=== PATIENT | male | born 1930 | race Caucasian/White ===

== ENCOUNTER 2020-11-05 13:37 | Inpatient (IN) | payer MEDICARE, OTHER ==
[~2020-11-05] VITALS: Ht 180.3 cm; Wt 85.6 kg
--- NOTE | 2020-11-05 13:55 | EKG ---
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
[2020-11-05] MEDS ORDERED: ASPIRIN CHEWABLE 81 MG TABLET. PO ONE (14:00)
--- NOTE | 2020-11-05 14:12 | RAD ---
EXAM: XR CHEST 2V 11/05/2020 1:56 PM CLINICAL INDICATION: Chest pain COMPARISON: PET/CT 09/12/[address] chest 08/12/2020 TECHNIQUE: 2 views of the chest FINDINGS: The heart is normal in size. 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 Posterio r subpleural opacities in the left lower lobe are unchanged. No consolidation, pleural effusion, or p neumothorax. No acute osseous abnormality. IMPRESSION: 1. No acute abnormality. 2. Decreased conspicuity of known right suprahilar mass. 3. Unchanged subpleural opacities in the posterior left lower lobe, possibly atelectasis. Electronically signed by: Lindsay Floyd MD (11/05/2020 2:09 PM) [id number]
[2020-11-05 14:24] LABS: BASO # 0.1 x10^3/uL (0.0-0.2); BASO % 0 % (0-3); EOS # 0.1 x10^3/uL (0.0-0.7); EOS % 0 % (0-3); HEMATOCRIT 36.6 % (39.0-53.0); HEMOGLOBIN 12.1 g/dL (13.0-17.5); LYMPH # 1.6 x10^3/uL (1.0-4.8); LYMPH % 4 % (24-48); MEAN CORPUSCULAR HEMOGLOBIN 31 pg (25-35); MEAN CORPUSCULAR HGB CONC 33 g/dL (31-37); MEAN CORPUSCULAR VOLUME 93 fL (79-100); MONO # 1.3 x10^3/uL (0.0-1.1); MONO % 4 % (0-9); NEUT # 34.2 x10^3uL (1.8-7.7); NEUT % 92 % (31-73); PLATELET COUNT 321 x10^3/uL (140-400); RED BLOOD COUNT 3.93 x10^6/uL (4.30-5.70); WHITE BLOOD COUNT 37.3 x10^3/uL (4.0-11.0)
[2020-11-05] MEDS ORDERED: KETOROLAC 15 MG/ML VIAL. IVP ONE (14:30)
[2020-11-05 14:38] LABS: CALCIUM 9.3 mg/dL (8.5-10.1); CREATININE 1.5 mg/dL (0.7-1.3); GFR 44.3; POTASSIUM 4.6 mmol/L (3.5-5.1)
[2020-11-05 14:55] LABS: ALBUMIN 3.8 g/dL (3.4-5.0); ALBUMIN/GLOBULIN RATIO 1.2 (1.0-1.7); DIRECT BILIRUBIN 0.2 mg/dL (0.0-0.2); MAGNESIUM 1.8 mg/dL (1.8-2.4); TOTAL BILIRUBIN 0.9 mg/dL (0.2-1.0); TOTAL PROTEIN 6.9 g/dL (6.4-8.2)
--- NOTE | 2020-11-05 14:57 | EKG ---
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
[2020-11-05 15:09] LABS: % LYMPHS 3 % (24-48); % MONOS 1 % (0-10); % SEGS 96 % (35-66)
[2020-11-05 15:13] LABS: PLT ESTIMATE ADEQUATE (ADEQUATE)
[2020-11-05] MEDS ORDERED: levoFLOXacin PER PHARMACY 1 EACH. MC PRN (16:00)
[2020-11-05] MEDS ORDERED: IV NORMAL SALINE 50ML 50 ML ONE (16:12)
[2020-11-05] MEDS ORDERED: cefTRIAXone SODIUM 1 GM VIAL ONE (16:12)
--- NOTE | 2020-11-05 16:18 | PHYS DOC ---
Past History Past Medical History: Hypertension (JORGE LUIS GRANDA APRN) Past Surgical History: Other Additional Past Surgical Histo: lung biopsy (JORGE LUIS GRANDA APRN) Alcohol Use: None (JORGE LUIS GRANDA APRN) Adult General Chief Complaint Chief Complaint: CHEST PAIN HPI HPI Patient is a 89-year-old male who presents to the emergency department complaining of being awoken today at 5 AM with sternal chest pain. Patient rated his pain a 7/10 on a 1-10 pain scale, patient stated he became nauseated and vomited times once which relieved his nausea. Patient noticed food particles in his vomitus. Patient denies any diaphoretic episode. Patient denies any radiation of this pain. Patient reports pain increases when he takes a deep breath and when he pushes on his chest. Patient states he took 2 Tylenol for his pain which relieved his pain down to a 2/10 on a 1-10 pain scale. Patient states he is currently short of breath, however states he has been treated over the past week for pneumonia by his enamel buffer Dr. CLINTON from the [place]. Patient reports he is on day 6 of a 14-day regimen of amoxicillin. Patient states he just finished a Medrol Dosepak. Patient denies any numbness tingling or swelling to his extremities. Patient denies any rashes to the skin. Patient denies any cough or chest congestion or nasal congestion. Patient denies any recent fever or chills, patient denies any recent travel. (JORGE LUIS GRANDA APRN) Review of Systems Review of Systems Constitutional: Denies fever or chills [] Eyes: Denies change in visual acuity, redness, or eye pain [] HENT: Denies nasal congestion or sore throat [] Respiratory: Denies cough or shortness of breath [] Cardiovascular: No additional information not addressed in HPI [] GI: Denies abdominal pain, nausea, vomiting, bloody stools or diarrhea [] : Denies dysuria or hematuria [] Musculoskeletal: Denies back pain or joint pain [] Integument: Denies rash or skin lesions [] Neurologic: Denies headache, focal weakness or sensory changes [] Endocrine: Denies polyuria or polydipsia [] All other systems were reviewed and found to be within normal limits, except as documented in this note. (JORGE LUIS GRANDA APRN) Current Medications Current Medications Current Medications Medications (Trade) Dose Ordered Sig/[facility] Start Time Stop Time Status Last Admin Dose Admin Aspirin (Aspirin Chewable) 324 mg 1X ONCE 11/05/20 14:00 11/05/20 14:01 DC 11/05/20 14:48 324 MG Ketorolac Tromethamine (Toradol 15mg Vial) 15 mg 1X ONCE 11/05/20 14:30 11/05/20 14:33 DC 11/05/20 14:48 15 MG (JORGE LUIS GRANDA APRN) Allergies Allergies Allergies Coded Allergies Type Severity Reaction Last Updated Verified No Known Drug Allergies 10/01/19 No (JORGE LUIS GRANDA APRN) Physical Exam Physical Exam Constitutional: Well developed, well nourished, no acute distress, non-toxic appearance. 89-year-old male no apparent distress. HENT: Normocephalic, atraumatic, bilateral external ears normal, oropharynx moist, no oral exudates, nose normal. Oropharynx moist, pink, no infectious process appreciated, no lymphadenopathy of the head or neck appreciated, no drooling, no trismus appreciated. Eyes: PERRLA, EOMI, conjunctiva normal, no discharge. Neck: Normal range of motion, no tenderness, supple, no stridor. No C-spine tenderness, no nuchal rigidity, no meningismus signs. Cardiovascular:Heart rate regular rhythm, no murmur, heart rate tachycardic, heart sounds S1-S2 to auscultation. Lungs & Thorax: Bilateral breath sounds clear to auscultation all lung rogers with diminished breath sounds bilateral bases. No other adventitious lung sounds appreciated. Pain elicited with palpation to the anterior thorax specifically midsternal palpation. Pain elicited with deep inspiratio n/expiration to the anterior thorax. Abdomen: Bowel sounds normal, soft, no tenderness, no masses, no pulsatile masses. Skin: Warm, dry, no erythema, no rash. Back: No tenderness, no CVA tenderness. Extremities: No tenderness, no cyanosis, no clubbing, ROM intact, no edema. Distal cap refill less than 2 seconds, +2/4 pulses. Neurologic: Alert and oriented X 3, normal motor function, normal sensory function, no focal deficits noted. Psychologic: Affect normal, judgement normal, mood normal. (JORGE LUIS GRANDA Current Patient Data Vital Signs Vital Signs Date Time Temp Pulse Resp B/P (MAP) Pulse Ox O2 Delivery O2 Flow Rate FiO2 11/05/20 14:45 90 16 120/62 (81) 96 Room Air 11/05/20 13:40 99.2 Lab Results Laboratory Tests Test 11/05/20 13:56 White Blood Count 37.3 x10^3/uL Red Blood Count 3.93 x10^6/uL Hemoglobin 12.1 g/dL Hematocrit 36.6 % Mean Corpuscular Volume 93 fL Mean Corpuscular Hemoglobin 31 pg Mean Corpuscular Hemoglobin Concent 33 g/dL Red Cell Distribution Width 14.0 % Platelet Count 321 x10^3/uL Neutrophils (%) (Auto) 92 % Lymphocytes (%) (Auto) 4 % Monocytes (%) (Auto) 4 % Eosinophils (%) (Auto) 0 % Basophils (%) (Auto) 0 % Neutrophils # (Auto) 34.2 x10^3uL Lymphocytes # (Auto) 1.6 x10^3/uL Monocytes # (Auto) 1.3 x10^3/uL Eosinophils # (Auto) 0.1 x10^3/uL Basophils # (Auto) 0.1 x10^3/uL Segmented Neutrophils % 96 % Lymphocytes % 3 % Monocytes % 1 % Platelet Estimate Adequate Prothrombin Time 10.4 SEC Prothromb Time International Ratio 1.0 Activated Partial Thromboplast Time 26 SEC Sodium Level 135 mmol/L Potassium Level 4.6 mmol/L Chloride Level 98 mmol/L Carbon Dioxide Level 28 mmol/L Anion Gap 9 Blood Urea Nitrogen 31 mg/dL Creatinine 1.5 mg/dL Estimated GFR (Cockcroft-Gault) 44.3 BUN/Creatinine Ratio 21 Glucose Level 197 mg/dL Calcium Level 9.3 mg/dL Magnesium Level 1.8 mg/dL Total Bilirubin 0.9 mg/dL Direct Bilirubin 0.2 mg/dL Aspartate Amino Transf (AST/SGOT) 20 U/L Alanine Aminotransferase (ALT/SGPT) 25 U/L Alkaline Phosphatase 84 U/L Creatine Kinase 54 U/L Creatine Kinase MB (Mass) 1.0 ng/mL Creatine Kinase MB Relative Index 1.9 % Troponin I Quantitative < 0.017 ng/mL [id number]-F-Type Natriuretic Peptide 681 pg/mL Total Protein 6.9 g/dL Albumin 3.8 g/dL Albumin/Globulin Ratio 1.2 Lipase 74 U/L Current Medications Medications (Trade) Dose Ordered Sig/Tammi Route PRN Reason Start Time Stop Time Status Last Admin Dose Admin Aspirin (Aspirin Chewable) 324 mg 1X ONCE PO 11/05/20 14:00 11/05/20 14:01 DC 11/05/20 14:48 324 MG Ketorolac Tromethamine (Toradol 15mg Vial) 15 mg 1X ONCE IVP 11/05/20 14:30 11/05/20 14:33 DC 11/05/20 14:48 15 MG Laboratory Tests Test 11/05/20 13:56 White Blood Count 37.3 x10^3/uL (4.0-11.0) H Red Blood Count 3.93 x10^6/uL (4.30-5.70) L Hemoglobin 12.1 g/dL (13.0-17.5) L Hematocrit 36.6 % (39.0-53.0) L Mean Corpuscular Volume 93 fL (79-100) Mean Corpuscular Hemoglobin 31 pg (25-35) Mean Corpuscular Hemoglobin Concent 33 g/dL (31-37) Red Cell Distribution Width 14.0 % (11.5-14.5) Platelet Count 321 x10^3/uL (140-400) Neutrophils (%) (Auto) 92 % (31-73) H Lymphocytes (%) (Auto) 4 % (24-48) L Monocytes (%) (Auto) 4 % (0-9) Eosinophils (%) (Auto) 0 % (0-3) Basophils (%) (Auto) 0 % (0-3) Neutrophils # (Auto) 34.2 x10^3uL (1.8-7.7) H Lymphocytes # (Auto) 1.6 x10^3/uL (1.0-4.8) Monocytes # (Auto) 1.3 x10^3/uL (0.0-1.1) H Eosinophils # (Auto) 0.1 x10^3/uL (0.0-0.7) Basophils # (Auto) 0.1 x10^3/uL (0.0-0.2) Segmented Neutrophils % 96 % (35-66) H Lymphocytes % 3 % (24-48) L Monocytes % 1 % (0-10) Platelet Estimate Adequate (ADEQUATE) Prothrombin Time 10.4 SEC (9.4-11.4) Prothrombin Time INR 1.0 (0.9-1.1) Activated Partial Thromboplast Time 26 SEC (23-33) Sodium Level 135 mmol/L (136-145) L Potassium Level 4.6 mmol/L (3.5-5.1) Chloride Level 98 mmol/L (98-107) Carbon Dioxide Level 28 mmol/L (21-32) Anion Gap 9 (6-14) Blood Urea Nitrogen 31 mg/dL (8-26) H Creatinine 1.5 mg/dL (0.7-1.3) H Estimated GFR (Cockcroft-Gault) 44.3 BUN/Creatinine Ratio 21 (6-20) H Glucose Level 197 mg/dL (70-99) H Calcium Level 9.3 mg/dL (8.5-10.1) Magnesium Level 1.8 mg/dL (1.8-2.4) Total Bilirubin 0.9 mg/dL (0.2-1.0) Direct Bilirubin 0.2 mg/dL (0.0-0.2) Aspartate Amino Transferase (AST) 20 U/L (15-37) Alanine Aminotransferase (ALT) 25 U/L (16-63) Alkaline Phosphatase 84 U/L (46-116) Creatine Kinase 54 U/L (39-308) Creatine Kinase MB (Mass) 1.0 ng/mL (0.0-3.6) Creatine Kinase MB Relative Index 1.9 % (0-4) Troponin I Quantitative < 0.017 ng/mL (0-0.055) ZY-Vun-R-Type Natriuretic Peptide 681 pg/mL (0-449) H Total Protein 6.9 g/dL (6.4-8.2) Albumin 3.8 g/dL (3.4-5.0) Albumin/Globulin Ratio 1.2 (1.0-1.7) Lipase 74 U/L (73-393) (JORGE LUIS GRANDA APRN) EKG EKG EKG performed at 1344 by house respiratory therapy staff shows sinus tachycardia with an occasional PAC, heart rate 105 bpm, IN interval 0.168, QTc interval 0 .480, no acute STEMI, no ACS, no acute ischemia appreciated, EKG interpreted by ED attending physician Dr. Faust. EKG performed at 1439 by house respiratory therapy staff shows a normal sinus rhythm without ectopy heart rate 94 bpm, IN interval 0.170, QTc interval 0.461, no acute STEMI, no ACS, no acute ischemia appreciated, EKG interpreted by ED attending physician Dr. Faust. (JORGE LUIS GRANDA APRN) Radiology/Procedures Radiology/Procedures PATIENT: CYNDI JAEGER ACCOUNT: [id number] : 1930 LOCATION: ER AGE: 89 SEX: M EXAM STATUS: REG ER ORD. PHYSICIAN: JORGE LUIS GRANDA APRN REASON: CHEST PAIN PROCEDURE: CHEST PA & LATERAL EXAM: XR CHEST 2V 11/05/2020 1:56 PM CLINICAL INDICATION: Chest pain COMPARISON: PET/CT 09/12/[address] chest 08/12/2020 TECHNIQUE: 2 views of the chest FINDINGS: The heart is normal in size. 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 Posterior subpleural opacities in the left lower lobe are unchanged. No consolidation, pleural effusion, or pneumothorax. No acute osseous abnormality. IMPRESSION: 1. No acute abnormality. 2. Decreased conspicuity of known right suprahilar mass. 3. Unchanged subpleural opacities in the posterior left lower lobe, possibly atelectasis. Electronically signed by: Lindsay Floyd MD (11/05/2020 2:09 PM) [id number] DICTATED AND SIGNED BY: LINDSAY FLOYD MD DATE: 11/05/20 1405 CC: JORGE LUIS GRANDA APRN; NHUNG POWERS MD ~MTH0 0 (JORGE LUIS GRANDA APRN) Heart Score C/O Chest Pain: Yes HEART Score for Chest Pain: HEART Score for Chest Pain Response (Comments) Value History Slighlty/Non-Suspicious 0 ECG Normal 0 Age > 65 2 Risk Factors 1 or 2 Risk Factors 1 Troponin < Normal Limit 0 Total 3 Risk Factors: Risk Factors: DM, Current or recent (<one month) smoker, HTN, HLP, family history of CAD, obesity. Risk Scores: Risk Factors: DM, Current or recent (<one month) smoker, HTN, HLP, family history of CAD, obesity. (JORGE LUIS GRANDA APRN) Course & Med Decision Making Course & Med Decision Making Pertinent Labs and Imaging studies reviewed. (See chart for details) 89-year-old male, vital signs reviewed, presents emergency department complaining of sternal chest pain started at 5 AM this morning. Physical examination consistent with chest wall pain, however with patient recent history of lung biopsy, currently being treated for community-acquired pneumonia as outpatient with amoxicillin, a cardiorespiratory work-up was initiated. Patient chest x-ray concerning for subpleural opacities of the left lower lobe, patient is being treated with oral amoxicillin as outpatient for community- acquired pneumonia, however patient's white blood cell count equals 37,300, blood cultures x2 were ordered, 1 g Rocephin IV ordered, followed by Levaquin per pharmacy dosing IV. Discussed with patient findings, recommended admission to the hospital at [facility] for community acquired pneumonia failure outpatient treatment, chest pain, leukocytosis. Patient is amenable to being admitted under his primary care physician Dr. Powers at [facility]. Called and discussed patient case with patient primary care physician Dr. Powers who agreed to assume care and admit patient to the telemetry unit for the following diagnosis of community-acquired pneumonia with failed outpatient antibiotic therapy, leukocytosis, chest pain with the information he was given by me. Dr. Powers has assumed patient care at this time. (JORGE LUIS GRANDA APRN) Course & Med Decision Making I oversaw on the above date of service of this patient and discussed the care with the BASIN FINISH OPERATOR TIG WELDER. I saw patient and agree with the findings, plan of care, and disposition as documented. Electronically signed, Rich Faust DO (RICH FAUST DO) Feng Disclaimer Feng Disclaimer This electronic medical record was generated, in whole or in part, using a voice recognition dictation system. (JORGE LUIS GRANDA APRN) Departure Departure: Impression: Primary Impression: Community acquired pneumonia Additional Impressions: Leukocytosis Chest pain Disposition: ADMITTED INPATIENT Admitting Physician: Nhung Powers (Admit to the telemetry unit to Dr. Fabiola tanner) (JORGE LUIS GRANDA APRN) Condition: GUARDED Referrals: NHUNG POWERS MD (PCP) Scripts Digoxin (LANOXIN) 250 Mcg Tablet 1 TAB PO DAILY for a fib for 30 Days, #30 TAB 0 Refills Prov: NHUNG POWERS MD 11/07/20 Problem Qualifiers Primary Impression: Community acquired pneumonia Laterality: left Lung location: lower lobe of lung Qualified Codes: J18.9 - Pneumonia, unspecified organism Additional Impressions: Leukocytosis Leukocytosis type: unspecified Qualified Codes: D72.829 - Elevated white blood cell count, unspecified Chest pain Chest pain type: unspecified Qualified Codes: R07.9 - Chest pain, unspecified JORGE LUIS GRANDA APRN Nov 05, 2020 16:17 RICH FAUST DO November 08, 2020 02:18
--- NOTE | 2020-11-05 18:02 | NUR ---
PT ARRIVED TO UNIT VIA EMS. PTS VS OBTAINED AND ARE STABLE. PT IS ORIENTED TO ROOM AND PROCEDURES. PT IS OFFERED FOOD AND DRINK. PT IS EATING DINNER TRAY IN ROOM AT THIS TIME. WILL CONTINUE TO MONITOR.
[2020-11-05] MEDS ORDERED: FERR325T14 PO (18:19)
[2020-11-05] MEDS ORDERED: VITA1TAB19 PO (18:19)
[2020-11-05] MEDS ORDERED: MULT-245 PO (18:19)
[2020-11-05] MEDS ORDERED: LEVO100T5 PO (18:19)
[2020-11-05] MEDS ORDERED: LISI20TA18 PO (18:19)
[2020-11-05] MEDS ORDERED: METF500T16 PO (18:19)
[2020-11-05] MEDS ORDERED: APIX5TAB3 PO (18:19)
[2020-11-05] MEDS ORDERED: SIMV20TA18 PO (18:19)
[2020-11-05] MEDS ORDERED: OMEP20CA16 PO (18:19)
[2020-11-05 18:25] VITALS: BP 127/71
[2020-11-05] MEDS ORDERED: ACET325T21 PO (19:55)
[2020-11-05] MEDS ORDERED: ACETAMINOPHEN 325 MG TABLET PO PRN (20:00)
[2020-11-05] MEDS ORDERED: BUDE10.22 IH (20:38)
[2020-11-05] MEDS: FLUTICASONE/VILANTEROL 100/25 INHALER. INH SCH (21:00)
[2020-11-05 22:21] VITALS: BP 109/68
[2020-11-06] VITALS (13 sets, daily range): BP systolic 95–125; BP diastolic 53–82
[2020-11-06] MEDS: FLUTICASONE/VILANTEROL 100/25 INHALER. INH SCH (08:46)
[2020-11-06 10:25] LABS: BASO % 0 % (0-3); EOS # 0.1 x10^3/uL (0.0-0.7); EOS % 0 % (0-3); HEMATOCRIT 31.1 % (39.0-53.0); HEMOGLOBIN 10.1 g/dL (13.0-17.5); LYMPH # 2.1 x10^3/uL (1.0-4.8); LYMPH % 12 % (24-48); MEAN CORPUSCULAR HEMOGLOBIN 30 pg (25-35); MEAN CORPUSCULAR HGB CONC 33 g/dL (31-37); MEAN CORPUSCULAR VOLUME 93 fL (79-100); MONO # 0.6 x10^3/uL (0.0-1.1); MONO % 3 % (0-9); NEUT # 15.7 x10^3uL (1.8-7.7); NEUT % 85 % (31-73); PLATELET COUNT 263 x10^3/uL (140-400); RED BLOOD COUNT 3.34 x10^6/uL (4.30-5.70); RED CELL DISTRIBUTION WIDTH 13.9 % (11.5-14.5); WHITE BLOOD COUNT 18.6 x10^3/uL (4.0-11.0)
[2020-11-06] MEDS: MULTIVITAMIN with MINERAL TABLET. PO SCH (10:25)
[2020-11-06] MEDS: LISINOPRIL 20 MG TABLET PO SCH (10:25)
[2020-11-06] MEDS: VITAMIN B COMPLEX CAPSULE. PO SCH (10:25)
[2020-11-06] MEDS: APIXABAN 5 MG TABLET. PO SCH ×2 (10:25→19:46)
--- NOTE | 2020-11-06 12:15 | NUR ---
Nursing note Pt verbalizes concern for discharge time. Pt states that he is concerned that he may miss his oncology appointment at on Tuesday the at 1045. informed of pts concern.
[2020-11-06] MEDS ORDERED: AZIT500T PO (14:34)
--- NOTE | 2020-11-06 14:42 | NUR ---
FOLLOW UP FOLLOW UP WITH DR POWERS [phone] ON TuesdayNovember AT 1045.
--- NOTE | 2020-11-06 16:36 | HP ---
HISTORY OF PRESENT ILLNESS: This is a pleasant 89-year-old male, came in through the emergency room with increased shortness of breath, substernal chest pain 7-04/19. The patient has become somewhat nauseated and vomited twice early with nausea. The patient noticed food particles in his vomitus. The patient denies any diaphoretic episode. The patient denies any radiation of pain. The patient notes that it somewhat increases with a deep breath. Recently, he has been seen by a management trainee program stores, Dr. Ash at the [place] and was given amoxicillin for what was thought to be a bronchitis and Medrol Dosepak. The patient otherwise denies any diaphoresis. The patient was admitted for pneumonia. He had a white count of 33,000, and as a result of this, the patient was admitted for further evaluation and treatment. PAST MEDICAL HISTORY: Cataracts; macular degeneration; neurological disorder; cerebrovascular disorder; cardiac disorders; cardiomyopathy, on Eliquis; hypercholesterolemia; hypertension; diverticulitis; diabetes; hypothyroidism; skin cancer; pressure ulcers and extended-spectrum beta-lactamase. ALLERGIES: No known drug allergies. SOCIAL HISTORY: The patient denies smoking, alcohol or drug use and lives at home. He is a full code. REVIEW OF SYSTEMS: The patient denies any headaches, visual changes, blurred vision, double vision. He does have some shortness of breath and chest pain now. He has no nausea or vomiting or abdominal pain. Denies any melena, hematochezia, hematemesis, and neurologically, the patient is alert and oriented x 3. PHYSICAL EXAMINATION: GENERAL: This is a pleasant white male. VITAL SIGNS: Blood pressure anywhere from 120/57-60, pulse 90, respiratory rate 16, temperature was slightly elevated at 99.2, oxygen saturation 95% on room air. HEENT: The patient's head was atraumatic, normocephalic. Eyes: PERRLA without jaundice. The mouth and throat were normal. NECK: Supple, no JVD, no thyromegaly. LUNGS: Diminished throughout, but basically clear. CARDIOVASCULAR: Regular sinus rhythm. ABDOMEN: Protuberant, soft, diffuse tenderness in the epigastric area, but no rebound or guarding. Positive bowel sounds. No hepatosplenomegaly was noted. EXTREMITIES: No clubbing, cyanosis, nor edema. NEUROLOGIC: The patient was alert and oriented x 3. The patient otherwise was alert and oriented and patient was stable. LABORATORY DATA: The white count as noted was 37,000, increase in neutrophils. The patient's hemoglobin and hematocrit were slightly low at 12.1, went down to 10.1 and 31. The patient's coags. Lactic acid was normal at 1.6. BUN and creatinine 31 and 1.5. Sodium and potassium 135 and 4.6. BNP was 681. Chest x-ray was basically no acute abnormality noted. The patient otherwise will be admitted, placed on IV antibiotics and make further evaluation on him as indicated. The patient's BNP was elevated at 681. Cardiac enzymes were negative. Blood sugar 174. Lactic acid 1.6. The patient will be monitored. IV antibiotic therapy, possibly diuresis and make further evaluation on him as indicated. SHANDRA DR: Clarice TID: [id number]
[2020-11-06] MEDS ORDERED: metFORMIN 500 MG TABLET PO SCH (17:00)
--- NOTE | 2020-11-06 17:32 | NUR ---
NURSING NOTE PT GETTING READY TO DISCHARGE AND THIS NURSE NOTICED HIS [employer] DINING CAR GO INTO AFIB HR FLUNCTUATING BETWEEN 120'S-140'S. DR POWERS NOTIFIED, ORDER FOR EKG, MAKE ICU STATUS FOR IV DIGOXIN 0.5 MCG, CONSULT CARDIOLOGY, CANCEL DISCHARGE. ALEISHA BARAJAS. Addendum: 11/06/20 at 1756 by KARL RAMIREZ RN RN CALLED TO VARIFY DIGOXIN WITH PHARMACY/DR POWERS. DIGOXIN 500MCG ORDERED IV PUSH.
[2020-11-06] MEDS ORDERED: DIGOXIN IV 500 MCG/2 ML AMPUL. IV ONE ×2 (17:45→20:00)
--- NOTE | 2020-11-06 17:53 | NUR ---
NURSING NOTE CONSULT CONSULT CARDIOLOGY CALLED. KARL MORAES
[2020-11-06] MEDS ORDERED: dilTIAZem VIAL 125 MG in IV NORMAL SALINE 100ML 100 ML IV PRN (19:00)
--- NOTE | 2020-11-06 20:38 | EKG ---
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
[2020-11-06] MEDS ORDERED: ATORVASTATIN CALCIUM 10 MG TABLET. PO SCH (21:00)
--- NOTE | 2020-11-06 21:52 | NUR ---
Pt was transferred over from [address] [place] [address] to ICU bed 4 on previous shift for Afib RVR. Pt with irregular rate and rhythm, ranging 100-150 bpm. Pt received digoxin 500mcg IVP x1 at 1800, and another x1 dose of 250mcg at 1947. Pt has not converted to SR, but rate has improved to 90-110 bpm. Pt to see cardiology in AM, consult called by previous RN. Pt denies any c/o. Currently resting in bed.
[2020-11-07] VITALS (10 sets, daily range): BP systolic 109–131; BP diastolic 57–70
[2020-11-07 06:31] LABS: BASO % 0 % (0-3); EOS # 0.1 x10^3/uL (0.0-0.7); EOS % 1 % (0-3); HEMATOCRIT 33.8 % (39.0-53.0); HEMOGLOBIN 11.3 g/dL (13.0-17.5); LYMPH # 3.3 x10^3/uL (1.0-4.8); LYMPH % 26 % (24-48); MEAN CORPUSCULAR HEMOGLOBIN 31 pg (25-35); MEAN CORPUSCULAR HGB CONC 33 g/dL (31-37); MEAN CORPUSCULAR VOLUME 93 fL (79-100); MONO # 0.6 x10^3/uL (0.0-1.1); MONO % 5 % (0-9); NEUT # 8.5 x10^3uL (1.8-7.7); NEUT % 68 % (31-73); PLATELET COUNT 273 x10^3/uL (140-400); RED BLOOD COUNT 3.63 x10^6/uL (4.30-5.70); RED CELL DISTRIBUTION WIDTH 13.9 % (11.5-14.5); WHITE BLOOD COUNT 12.5 x10^3/uL (4.0-11.0)
[2020-11-07 06:37] LABS: CALCIUM 8.9 mg/dL (8.5-10.1); CREATININE 1.4 mg/dL (0.7-1.3); GFR 47.9; POTASSIUM 4.4 mmol/L (3.5-5.1)
[2020-11-07] MEDS ORDERED: LEVOTHYROXINE 100 MCG TABLET PO SCH (07:30)
[2020-11-07] MEDS ORDERED: PANTOPRAZOLE 40 MG TABLET. PO SCH (07:30)
[2020-11-07] MEDS: VITAMIN B COMPLEX CAPSULE. PO SCH (08:09)
[2020-11-07] MEDS: LISINOPRIL 20 MG TABLET PO SCH (08:10)
[2020-11-07] MEDS: APIXABAN 5 MG TABLET. PO SCH (08:10)
[2020-11-07] MEDS: MULTIVITAMIN with MINERAL TABLET. PO SCH (08:10)
[2020-11-07] MEDS ORDERED: DIGO250T PO (08:23)
--- NOTE | 2020-11-07 08:57 | NUR ---
Discharged from the hospital, ambulated to car. A/O x4 BP stable, HR SR 70's rate. Pt will follow up with out patient cardiologists.
[2020-11-07] MEDS ORDERED: FERROUS SULFATE 325 MG TABLET. PO SCH (09:00)
--- NOTE | 2020-11-07 22:33 | DS ---
HOSPITAL COURSE: An 89-year-old gentleman admitted with cough and congestion. The patient had increased shortness of breath, substernal chest pain 7-8/10. The patient had been recently seen by his pharmacy manager at the [place], started on amoxicillin and Medrol Dosepak probably within the last 2 weeks, although he has been off the steroids. The patient was admitted for possible pneumonia and he had a white count of 33,000. The patient made excellent progress as his white count precipitated down from 37-18-12. Hemoglobin remained basically a little bit low at 11.3 and 33. The patient had normal platelets. The patient's sodium, potassium, BUN and creatinine were all normal except for the latter. The creatinine was 1.4 with a GFR of 48. The patient's blood sugar was 174. BNP slightly elevated at 681. The patient otherwise has made good progress overall with that element of his pneumonia and his mild respiratory distress; however, the patient before he was ready to leave went into AFib with RVR with a rate of 140. He has had previous history and ablation for this. He was on blood thinner with Eliquis. The patient was therefore admitted, taken to the ICU for close monitoring. He was given Lanoxin 500 mcg IV, which attempted to slow the heart rate down as well as 25 mcg around 6 hours later. The patient also continued to speed up and Dr. Tellez, centerpuncher recommended use of Cardizem, which we gave, but he trung down into the 40s and blood pressure dropped as well, so obviously he was taken off the Cardizem and his vital signs came back up and last blood pressure 125/70, respiratory rate 16, pulse 80. The patient was on room air at 94%. He was afebrile. The patient was discharged home. Follow up as an outpatient. Stay on Lanoxin and Zithromax and make further evaluation on him as an outpatient. He is to see an oncologist today for followup on his lung situation. Otherwise, the patient made excellent progress. IMPRESSION: Pneumonitis, leukocytosis, chest pain noncardiac, atrial fibrillation with rapid ventricular response. The patient continues to be monitored as an outpatient and make further evaluation with his primary as well as cardiology followups. Blood cultures were negative. MICHELE/EARL DR: MICHELE/morgan TID: [id number]
== END 2020-11-07 08:45 | disposition home or self-care (01) | DRG 871 ==
LOC: ER 13:37 → 1 SOUTH 15:56 → ICU 11-06 17:44
PROVIDERS: ADMIT Family Medicine; ATTEND Family Medicine
DX: A41.9 Sepsis, unspecified organism (principal); J15.6 Pneumonia due to other Gram-negative bacteria; J15.9 Unspecified bacterial pneumonia; I48.20 Chronic atrial fibrillation, unspecified; I42.9 Cardiomyopathy, unspecified; E03.9 Hypothyroidism, unspecified; E11.9 Type 2 diabetes mellitus without complications; E78.00 Pure hypercholesterolemia, unspecified; I10 Essential (primary) hypertension; Z85.828 Personal history of other malignant neoplasm of skin; H26.9 Unspecified cataract; R11.2 Nausea with vomiting, unspecified; R06.03 Acute respiratory distress; Z86.73 Personal history of transient ischemic attack (TIA), and cerebral infarction without residual deficits
CPT/HCPCS: 36415; 71046; 80048; 80053; 80076; 82553; 82947; 83605; 83690; 83735; 83880; 84484; 85007; 85025; 85610; 85730; 87040; 93005; 96365; 96367; 96375; J0696; J1160; J1885; J1956; J3490; 99285-25

== ENCOUNTER 2020-12-04 04:53 | Emergency (ER) | payer MEDICARE, OTHER ==
[~2020-12-04] VITALS: Ht 180.3 cm; Wt 86.7 kg
--- NOTE | 2020-12-04 05:14 | PHYS DOC ---
Past History Past Medical History: Diabetes, Hypertension, Other Additional Past Medical Histor: blood clots Past Surgical History: Other Additional Past Surgical Histo: lung biopsy Alcohol Use: None Adult General Chief Complaint Chief Complaint: Palpitations HPI HPI Patient is an 89-year-old male who presents with a chief complaint of palpitations. Upon arrival to the emergency department patient stated he felt fine and is having no medical plates at this time and wished to be discharged home without being seen. 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 Allergies Allergies Allergies Coded Allergies Type Severity Reaction Last Updated Verified adhesive Allergy Mild Swelling , blistering , redness, and itching 11/27/20 Yes Current Patient Data Vital Signs Vital Signs Date Time Temp Pulse Resp B/P (MAP) Pulse Ox O2 Delivery O2 Flow Rate FiO2 12/04/20 04:53 98.1 83 24 176/98 (124) 98 Room Air EKG EKG EKG with a rate of 82, QRS of 132, QTc of 449, no STEMI. Right bundle branch block. [] Radiology/Procedures Radiology/Procedures [] Heart Score C/O Chest Pain: No Risk Factors: Risk Factors: DM, Current or recent (<one month) smoker, HTN, HLP, family history of CAD, obesity. Risk Scores: Risk Factors: DM, Current or recent (<one month) smoker, HTN, HLP, family history of CAD, obesity. Course & Med Decision Making Course & Med Decision Making Patient left emergency department without being seen by physician [] Dragon Disclaimer Dragon Disclaimer This electronic medical record was generated, in whole or in part, using a voice recognition dictation system. Departure Departure: Disposition: LEFT WITHOUT BEING SEEN Referrals: NHUNG POWERS MD (PCP) Patient Instructions: Palpitations JD HENSON MD December 04, 2020 05:14
[2020-12-04 05:25] VITALS: BP 160/89
--- NOTE | 2020-12-04 06:24 | EKG ---
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
== END 2020-12-04 05:28 | disposition left against medical advice (07) ==
LOC: ER 04:53
DX: R00.2 Palpitations (principal); E11.9 Type 2 diabetes mellitus without complications; I10 Essential (primary) hypertension
CPT/HCPCS: 93005; 99283-25

== ENCOUNTER → 2020-12-04 | Outpatient (CLI) | payer MEDICARE, OTHER ==
[~2020-12-04] MED LIST: ACET325T21 PO; APIX5TAB3 PO; AZIT500T PO; BUDE10.22 IH; DIGO250T PO; FERR325T14 PO; LEVO100T5 PO; LISI20TA18 PO; METF500T16 PO; MULT-245 PO; OMEP20CA16 PO; SIMV20TA18 PO; VERA120T2 PO; VIT1TABL34 PO; VITA1TAB19 PO
[2020-12-04 05:25] VITALS: BP 160/89
[2020-12-04 16:19] LABS: BASO % 0 % (0-3); EOS # 0.2 x10^3/uL (0.0-0.7); EOS % 1 % (0-3); HEMATOCRIT 34.3 % (39.0-53.0); HEMOGLOBIN 11.4 g/dL (13.0-17.5); LYMPH # 2.2 x10^3/uL (1.0-4.8); LYMPH % 20 % (24-48); MEAN CORPUSCULAR HEMOGLOBIN 31 pg (25-35); MEAN CORPUSCULAR HGB CONC 33 g/dL (31-37); MEAN CORPUSCULAR VOLUME 94 fL (79-100); MONO # 0.8 x10^3/uL (0.0-1.1); MONO % 8 % (0-9); NEUT # 7.7 x10^3uL (1.8-7.7); NEUT % 70 % (31-73); PLATELET COUNT 255 x10^3/uL (140-400); RED BLOOD COUNT 3.67 x10^6/uL (4.30-5.70); RED CELL DISTRIBUTION WIDTH 14.3 % (11.5-14.5)
[2020-12-04 16:36] LABS: CALCIUM 9.6 mg/dL (8.5-10.1); CREATININE 1.7 mg/dL (0.7-1.3); GFR 38.3; POTASSIUM 4.5 mmol/L (3.5-5.1)
== END ==
LOC: LAB 15:53
PROVIDERS: ATTEND Family Medicine
DX: E03.9 Hypothyroidism, unspecified (principal)
CPT/HCPCS: 36415; 80048; 82550; 84443; 84484; 85025

== ENCOUNTER 2021-03-09 23:45 | Emergency (ER) | payer MEDICARE, OTHER ==
[~2021-03-09] VITALS: Ht 177.8 cm; Wt 88.0 kg
[2021-03-10 00:39] LABS: BASO % 0 % (0-3); EOS # 0.2 x10^3/uL (0.0-0.7); EOS % 2 % (0-3); HEMATOCRIT 33.4 % (39.0-53.0); HEMOGLOBIN 11.2 g/dL (13.0-17.5); LYMPH % 35 % (24-48); MEAN CORPUSCULAR HEMOGLOBIN 32 pg (25-35); MEAN CORPUSCULAR HGB CONC 33 g/dL (31-37); MEAN CORPUSCULAR VOLUME 95 fL (79-100); MONO # 0.7 x10^3/uL (0.0-1.1); MONO % 7 % (0-9); NEUT # 6.3 x10^3uL (1.8-7.7); NEUT % 56 % (31-73); PLATELET COUNT 229 x10^3/uL (140-400); RED CELL DISTRIBUTION WIDTH 14.2 % (11.5-14.5); WHITE BLOOD COUNT 11.3 x10^3/uL (4.0-11.0)
[2021-03-10 00:46] LABS: CALCIUM 8.5 mg/dL (8.5-10.1); CREATININE 1.3 mg/dL (0.7-1.3); GFR 52.1; POTASSIUM 4.2 mmol/L (3.5-5.1)
[2021-03-10 00:59] LABS: DIRECT BILIRUBIN 0.1 mg/dL (0.0-0.2); MAGNESIUM 2.1 mg/dL (1.8-2.4); TOTAL BILIRUBIN 0.4 mg/dL (0.2-1.0)
[2021-03-10] MEDS ORDERED: cloNIDine HCL 0.1 MG TABLET PO ONE (01:00)
[2021-03-10] MEDS ORDERED: IV RINGERS SOLUTION,LACTATED 1,000 ML IV SCH (01:00)
[2021-03-10] MEDS ORDERED: cloNIDine TTS-2 1 PATCH PATCH TD ONE (01:00)
[2021-03-10] MEDS ORDERED: ASPIRIN CHEWABLE 81 MG TABLET. PO ONE (01:00)
[2021-03-10 01:42] LABS: BACTERIA,URINE 0 /HPF (0-FEW); BILIRUBIN,URINE NEG (NEG); CLARITY,URINE CLEAR; COLOR,URINE YELLOW; GLUCOSE,URINE NEG (NEG); NITRITE,URINE NEG (NEG); RBC,URINE 0 /HPF (0-2); SQUAMOUS EPITHELIAL CELL,UR OCC /LPF; UROBILINOGEN,URINE 0.2 mg/dL (0.2 mg/dL); WBC,URINE RARE /HPF (0-4)
--- NOTE | 2021-03-10 02:04 | RAD ---
EXAM: XR CHEST 1V 03/10/2021 1:01 AM CLINICAL INDICATION: Dyspnea COMPARISON: Chest radiograph 11/26/2020 TECHNIQUE: AP upright view of the chest FINDINGS: The cardiac silhouette is within normal limits. There is mild left lung volume loss, uncha nged. There are a few scattered calcified granulomas. Mild scarring at the left lung base, unchanged. No consolidation, pleural effusion, or pneumothorax. No acute osseous abnormalities. IMPRESSION: No acute cardiopulmonary abnormality. Electronically signed by: Lindsay Floyd MD (03/10/2021 2:01 AM) [id number]
--- NOTE | 2021-03-10 02:36 | PHYS DOC ---
Past History Past Medical History: Diabetes, Hypertension, Other Additional Past Medical Histor: blood clots Past Surgical History: Other Additional Past Surgical Histo: 1 FOOT OF COLON REMOVED Alcohol Use: None General Adult EDM: Chief Complaint: Palpitations HPI: HPI: ".. I had a fast heart rate.. I did take one of my Cardizem 120.. I to take it twice a day.. but I ve been taking it only if I need it.... " Patient is a 89 year old male who presents with above hx and complaints of tachycardia. Pt. follows with Dr. Powers Review of Systems: Review of Systems: Constitutional: Denies fever or chills Eyes: Denies change in visual acuity HENT: Denies nasal congestion or sore throat Respiratory: Denies cough or shortness of breath Cardiovascular: Denies chest pain or edema GI: Denies abdominal pain, nausea, vomiting, bloody stools or diarrhea : Denies dysuria Musculoskeletal: Denies back pain or joint pain Integument: Denies rash Neurologic: Denies headache, focal weakness or sensory changes Endocrine: Denies polyuria or polydipsia Lymphatic: Denies swollen glands Psychiatric: Denies depression or anxiety Current Medications: Current Meds: Current Medications Medications (Trade) Dose Ordered Sig/Tammi Start Time Stop Time Status Last Admin Dose Admin Aspirin (Aspirin Chewable) 324 mg 1X ONCE 03/10/21 01:00 03/10/21 01:01 DC 03/10/21 01:36 324 MG Clonidine HCl (Catapres Tts-2) 1 patch 1X ONCE 03/10/21 01:00 03/10/21 01:01 DC 03/10/21 01:37 1 PATCH Clonidine HCl (Catapres) 0.2 mg 1X ONCE 03/10/21 01:00 03/10/21 01:01 DC 03/10/21 01:36 0.2 MG Lactated Ringer's 1,000 ml @ 100 mls/hr Q10H 03/10/21 01:00 03/10/21 10:59 03/10/21 01:37 100 MLS/HR Allergies: Allergies: Allergies Coded Allergies Type Severity Reaction Last Updated Verified adhesive Allergy Mild Swelling , blistering , redness, and itching 11/27/20 Yes Physical Exam: PE: Constitutional: Well developed, well nourished, no acute distress, non-toxic appearance. [] HENT: Normocephalic, atraumatic, bilateral external ears normal, oropharynx moist, no oral exudates, nose normal. [] Eyes: PERRLA, EOMI, conjunctiva normal, no discharge. [] Neck: Normal range of motion, no tenderness, supple, no stridor. [] Cardiovascular:Heart rate regular rhythm, no murmur [] Lungs & Thorax: Bilateral breath sounds clear to auscultation [] Abdomen: Bowel sounds normal, soft, no tenderness, no masses, no pulsatile masses. [] Skin: Warm, dry, no erythema, no rash. [] Back: No tenderness, no CVA tenderness. [] Extremities: No tenderness, no cyanosis, no clubbing, ROM intact, no edema. [] Neurologic: Alert and oriented X 3, normal motor function, normal sensory function, no focal deficits noted. [] Psychologic: Affect normal, judgement normal, mood normal. [] Current Patient Data: Labs: Laboratory Tests Test 03/10/21 00:05 03/10/21 01:00 White Blood Count 11.3 x10^3/uL (4.0-11.0) H Red Blood Count 3.50 x10^6/uL (4.30-5.70) L Hemoglobin 11.2 g/dL (13.0-17.5) L Hematocrit 33.4 % (39.0-53.0) L Mean Corpuscular Volume 95 fL (79-100) Mean Corpuscular Hemoglobin 32 pg (25-35) Mean Corpuscular Hemoglobin Concent 33 g/dL (31-37) Red Cell Distribution Width 14.2 % (11.5-14.5) Platelet Count 229 x10^3/uL (140-400) Neutrophils (%) (Auto) 56 % (31-73) Lymphocytes (%) (Auto) 35 % (24-48) Monocytes (%) (Auto) 7 % (0-9) Eosinophils (%) (Auto) 2 % (0-3) Basophils (%) (Auto) 0 % (0-3) Neutrophils # (Auto) 6.3 x10^3uL (1.8-7.7) Lymphocytes # (Auto) 4.0 x10^3/uL (1.0-4.8) Monocytes # (Auto) 0.7 x10^3/uL (0.0-1.1) Eosinophils # (Auto) 0.2 x10^3/uL (0.0-0.7) Basophils # (Auto) 0.0 x10^3/uL (0.0-0.2) Sodium Level 139 mmol/L (136-145) Potassium Level 4.2 mmol/L (3.5-5.1) Chloride Level 103 mmol/L (98-107) Carbon Dioxide Level 27 mmol/L (21-32) Anion Gap 9 (6-14) Blood Urea Nitrogen 22 mg/dL (8-26) Creatinine 1.3 mg/dL (0.7-1.3) Estimated GFR (Cockcroft-Gault) 52.1 Glucose Level 133 mg/dL (70-99) H Calcium Level 8.5 mg/dL (8.5-10.1) Magnesium Level 2.1 mg/dL (1.8-2.4) Total Bilirubin 0.4 mg/dL (0.2-1.0) Direct Bilirubin 0.1 mg/dL (0.0-0.2) Aspartate Amino Transferase (AST) 18 U/L (15-37) Alanine Aminotransferase (ALT) 26 U/L (16-63) Alkaline Phosphatase 82 U/L (46-116) Creatine Kinase 80 U/L (39-308) Troponin I Quantitative < 0.017 ng/mL (0-0.055) QR-Ufv-L-Type Natriuretic Peptide 515 pg/mL (0-449) H Total Protein 7.0 g/dL (6.4-8.2) Albumin 4.0 g/dL (3.4-5.0) Urine Collection Type Unknown Urine Color Yellow Urine Clarity Clear Urine pH 7.0 Urine Specific [place] 1.015 Urine Protein Neg (NEG-TRACE) Urine Glucose (UA) Neg mg/dL (NEG) Urine Ketones (Stick) Neg mg/dL (NEG) Urine Blood Neg (NEG) Urine Nitrite Neg (NEG) Urine Bilirubin Neg (NEG) Urine Urobilinogen Dipstick 0.2 mg/dL (0.2 mg/dL) Urine Leukocyte Esterase Neg (NEG) Urine RBC 0 /HPF (0-2) Urine WBC Rare /HPF (0-4) Urine Squamous Epithelial Cells Occ /LPF Urine Bacteria 0 /HPF (0-FEW) Vital Signs: Vital Signs Date Time Temp Pulse Resp B/P (MAP) Pulse Ox O2 Delivery O2 Flow Rate FiO2 03/10/21 01:36 85 166/93 03/09/21 23:45 98.8 18 98 EKG: EKG: My interpretation EKG shows a tachycardia ventricle rate of 101 bpm. Does have a right bundle branch block. Overall morphology does appear to be almost A. fib like. There is some wavy baseline's will make some interpretation somewhat difficult. Radiology/Procedures: Radiology/Procedures: [][address] [address] IMAGING REPORT Signed PATIENT: CYNDI JAEGER ACCOUNT: [id number] : 1930 LOCATION: ER AGE: 89 SEX: M EXAM STATUS: REG ER ORD. PHYSICIAN: BILL HART MD REASON: dyspnea PROCEDURE: PORTABLE CHEST 1V EXAM: XR CHEST 1V 03/10/2021 1:01 AM CLINICAL INDICATION: Dyspnea COMPARISON: Chest radiograph 11/26/2020 TECHNIQUE: AP upright view of the chest FINDINGS: The cardiac silhouette is within normal limits. There is mild left lung volume loss, unchanged. There are a few scattered calcified granulomas. Mild scarring at the left lung base, unchanged. No consolidation, pleural effusion, or pneumothorax. No acute osseous abnormalities. IMPRESSION: No acute cardiopulmonary abnormality. Electronically signed by: Lindsay Floyd MD (03/10/2021 2:01 AM) [id number] DICTATED AND SIGNED BY: LINDSAY FLOYD MD DATE: 03/10/21 0200 CC: NHUNG POWERS MD; BILL HART MD ~MTH0 0 Heart Score: Risk Factors: Risk Factors: DM, Current or recent (<one month) smoker, HTN, HLP, family history of CAD, obesity. Risk Scores: Score 0 - 3: 2.5% MACE over next 6 weeks - Discharge Home Score 4 - 6: 20.3% MACE over next 6 weeks - Admit for Clinical Observation Score 7 - 10: 72.7% MACE over next 6 weeks - Early Invasive Strategies Course & Med Decision Making: Course & Med Decision Making Pertinent Labs and Imaging studies reviewed. (See chart for details) [] Dragon Disclaimer: Dragon Disclaimer: This electronic medical record was generated, in whole or in part, using a voice recognition dictation system. Departure Departure: Referrals: NHUNG POWERS MD (PCP) BILL HART MD Mar 10, 2021 02:36
[2021-03-10 03:45] VITALS: BP 114/68
--- NOTE | 2021-03-10 05:06 | EKG ---
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
== END 2021-03-10 03:45 | disposition home or self-care (01) ==
LOC: ER 23:45
DX: R00.0 Tachycardia, unspecified (principal); E11.9 Type 2 diabetes mellitus without complications; I10 Essential (primary) hypertension; Z88.8 Allergy status to other drugs, medicaments and biological substances
CPT/HCPCS: 36415; 71045; 80048; 80076; 81001; 82550; 83735; 83880; 84443; 84484; 85025; 93005; 96360; 96361; 99285; J7120

== ENCOUNTER → 2021-03-19 | Outpatient (CLI) | payer MEDICARE, OTHER ==
[2021-03-10 03:45] VITALS: BP 114/68
--- NOTE | 2021-03-19 13:19 | RAD ---
Examination: CT abdomen pelvis without contrast HISTORY: History of epigastric pain COMPARISON: 11/27/2020 TECHNIQUE: Axial CT images of abdomen and pelvis performed without contrast. Coronal and sagittal ref ormats are performed Exposure: One or more of the following individualized dose reduction techniques were utilized for thi s examination: 1. Automated exposure control 2. Adjustment of the mA and/or kV according to patient size 3. Use of iterative reconstruction technique FINDINGS: Atelectasis or scarring changes left lung base. No evidence of free air identified in the abdomen. The evaluation of the solid organs is limited due to lack of IV contrast. The evaluation of bowel is limited due to lack of oral contrast. The visualized noncontrasted liver, spleen, adrenals grossly ap pears unremarkable. The gallbladder is mildly distended. Small hiatal hernia. The stomach is mildly d istended. The visualized pancreas grossly appears unremarkable. The small bowel is nondilated. Feces and gas noted in the colon. Surgical changes identified in the sigmoid colon. The appendix is normal. No evidence of intrarenal collecting system calculi or hydronephrosis. Moderate aortic atherosclerosis . Moderate degenerative changes lumbar spine. IMPRESSION: 1. No acute intra-abdominal findings. 2. Small hiatal hernia. Electronically signed by: Preet Hester MD (03/19/2021 1:16 PM) [id number]
== END ==
LOC: CT 12:48
PROVIDERS: ATTEND Family Medicine
DX: K44.9 Diaphragmatic hernia without obstruction or gangrene (principal); K31.89 Other diseases of stomach and duodenum; K82.8 Other specified diseases of gallbladder; I70.0 Atherosclerosis of aorta; M47.816 Spondylosis without myelopathy or radiculopathy, lumbar region
CPT/HCPCS: 74176

== ENCOUNTER → 2021-10-19 | Outpatient (CLI) | payer MEDICARE, OTHER ==
--- NOTE | 2021-10-20 08:57 | RAD ---
CT LUMBAR SPINE WO History: Low back pain. Disc displacement. Technique: Noncontrast CT was performed of the lumbar spine. Multiplanar reconstructions were perform ed. Comparison: None Findings: There is variant anatomy at the lumbosacral junction with 6 nonrib-bearing lumbar type vertebral bodi es. The transitional L6 vertebral body is rectangular shaped and has a lumbarized right transverse pr ocess and sacralized left transverse process with rudimentary L6-S1 disc. No fracture. Mild anterolisthesis of L5 on L6. L1-L2: Moderate disc space narrowing and mild facet hypertrophy. L2-L3: Moderate to severe disc height loss, marginal osteophytes and mild facet degenerative changes. Spinal canal and neural foramina remain adequately patent. L3-L4: Disc space narrowing, asymmetric right lateral disc bulge and mild facet hypertrophy. Spinal c anal and neural foramina remain adequately patent. L4-L5: Severe disc space narrowing mild circumferential disc bulge and mild facet hypertrophy. Mild b ilateral neural foraminal narrowing. Canal remains adequately patent. L5-L6: Moderate disc space narrowing, mild anterolisthesis, small circumferential disc bulge and righ t greater than left facet hypertrophic degenerative changes cause moderate right neural foraminal carmela nosis and mild left neural foraminal stenosis. The spinal canal is mildly narrowed with possible impr ession on the bilateral subarticular recesses. L6-S1: Transitional level with rudimentary disc. No significant spinal canal or neuroforaminal stenos is. Partially visualized rectosigmoid anastomosis. Atherosclerotic calcification of the aorta and iliac a rteries. Right sacroiliac joint sclerosis. Impression: 1. 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 2. Multilevel moderate or greater degenerative disc height loss. 3. 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 Correlate for symptoms of radiculopathy. Re commend lumbar spine MRI for further evaluation of radiculopathy. Exposure: One or more of the following individualized dose reduction techniques were utilized for thi s examination: 1. Automated exposure control 2. Adjustment of the mA and/or kV according to patient size 3. Use of iterative reconstruction technique. Electronically signed by: Dayo Alfredo MD (10/20/2021 8:54 AM) [id number]
== END ==
LOC: CT 13:07
PROVIDERS: ATTEND Family Medicine
DX: M51.36 Other intervertebral disc degeneration, lumbar region (principal); M48.061 Spinal stenosis, lumbar region without neurogenic claudication; M47.896 Other spondylosis, lumbar region; M43.16 Spondylolisthesis, lumbar region; M51.27 Other intervertebral disc displacement, lumbosacral region; M51.87 Other intervertebral disc disorders, lumbosacral region
CPT/HCPCS: 72131